=== PATIENT | female | born 1960 | race Caucasian/White ===

== ENCOUNTER 2018-09-20 23:53 | Emergency (ER) | payer BC ==
[2018-09-21] MEDS ORDERED: Adacel (T-DAP) 0.5 ML SYRINGE ONE
== END 2018-09-21 00:17 | disposition home or self-care (01) ==
LOC: BURERS 23:53
DX: S60.445A External constriction of left ring finger, initial encounter (principal); W49.04XA Ring or other jewelry causing external constriction, initial encounter
CPT/HCPCS: 90471; 90715